=== PATIENT | female | born 1995 | race Caucasian/White ===

== ENCOUNTER 2016-09-14 21:33 | Emergency (ER) | payer BC ==
[~2016-09-14] VITALS: Ht 160 cm; Wt 76.5 kg
[~2016-09-14 21:33] MED LIST changes: -*MEPERIDINE 25 MG INJ VIAL PERIprocedural Use ONLY ONE; -ACETAMINOPHEN/HYDROcodone 325 MG/5 MG TAB ONE; -AMPICILLIN/SULBAC 3 GM/NS 100 ML IV SCH; -BACITRACIN TOP OINT 15 GM TUBE ONE; -CHLORHEXIDINE GLUCONATE 2 % 1 PACK (2 CLOTHS) TOPICAL PRN; -INSULIN HUMAN REGULAR 1,000 UNITS/10 ML VIAL SQ PRN; -LACTATED RINGER'S 1000 ML IV PRN; -LIDOCAINE 1%/EPINEPHrine 1:100,000 SOLN 30 ML VIAL ONE; -METOPROLOL TARTRATE 25 MG TAB PO PRN; -MIDAZOLAM HCL 2 MG/2 ML VIAL ONE; -MORPHINE SULFATE 4 MG/ML INJ ONE; -ONDANSETRON HCL 4 MG/2 ML VIAL IV PUSH ONE; -OXYMETAZOLINE HCL 0.05% 15 ML NASAL SPRAY ONE; -POVIDONE IODINE 5% (ANTISEPSIS KIT) 4 APPLICATIONS EACH NARE PRN; -PROPOFOL 200 MG/20 ML AMP IV ONE; -SODIUM CHLORID 0.9% 500 ML IV PRN
[2016-09-14 21:36] VITALS: BP 125/70; PULSE 88; RESP 18; TEMP 98.3; O2SAT 100
--- NOTE | 2016-09-14 21:52 | PD ---
HPI Chief Complaint: nosebleed Time Seen by Provider: 21:44 Travel History International Travel<30 days: No Contact w/Intl Traveler<30days: No Traveled to known affect area: No History of Present Illness HPI Patient complains of bleeding from the left-sided nose. Patient had nose surgery by Dr. Panchal this morning. Patient has history of deviated nasal septum, hypertrophy of nasal turbinates. Patient status post septoplasty, bilateral turbinectomy, turbinate resection. Patient contacted Dr. Panchal earlier today and states that she had persistent nosebleed. Patient was advised by Dr. Panchal to be seen in the ED. Dr. Panchal met patient in ED and examined the patient. PFSH Past Medical History Cancer: No Cardiovascular Problems: No Diabetes: No Endocrine: No Genitourinary: No Hepatitis: No Hiatal Hernia: No Immune Disorder: No Musculoskeletal: No Neurologic: No Psychiatric: Yes (ANXIETY) Reproductive: No Respiratory: No Thyroid Disease: No Past Surgical History Abdominal Surgery: No AICD: No Cardiac Surgery: No Ear Surgery: No Endocrine Surgery: No Eye Surgery: No Genitourinary Surgery: No Gynecologic Surgery: No Joint Replacement: No Oral Surgery: Yes (WISDOM TEETH EXTRACTION, TONSILLECTOMY/ADENOIDECTOMY) Pacemaker: No Thoracic Surgery: No Social History Tobacco Use: No Allergies-Medications (Allergen,Severity, Reaction): Coded Allergies: Sulfa (Verified Allergy, Severe, Hives, 09/14/16) Reported Meds & Prescriptions Reported Meds & Active Scripts Active Reported Hydrocodone-Acetaminophen 5-325 mg Tab 1 Tab PO Q4H PRN .07/20 (Norethindrone-Ethinyl Estradiol) 1.5-30 Mg-Mcg Tab 1 Tab PO DAILY Hydroxyzine HCl 25 Mg Tab 25 Mg PO DAILY Review of Systems General / Constitutional: No: Fever Eyes: No: Visual changes HENT: Positive: Nosebleed, No: Headaches Cardiovascular: No: Chest Pain or Discomfort Respiratory: No: Shortness of Breath Gastrointestinal: No: Abdominal Pain Genitourinary: No: Dysuria Musculoskeletal: No: Pain Skin: No Rash Neurologic: No: Weakness Psychiatric: No: Depression Endocrine: No: Polydipsia Hematologic/Lymphatic: No: Easy Bruising Physical Exam Narrative Examination done by Dr. Panchal. Rhino Rocket tacking in place left-sided nose. Data Data Last Documented VS Vital Signs Date Time Temp Pulse Resp B/P Pulse Ox O2 Delivery O2 Flow Rate FiO2 09/14/16 21:53 18 09/14/16 21:36 98.3 88 125/70 100 MDM Medical Decision Making Medical Screen Exam Complete: Yes Emergency Medical Condition: Yes Differential Diagnosis Differential diagnosis including bleeding status post nose surgery. Narrative Course 21-year-old female with nosebleed status post nose surgery this morning. Patient was seen by Dr. Panchal in the ED. Examination was done by Dr. Panchal. Patient was advised to follow with him the office tomorrow morning. Diagnosis Primary Impression: Epistaxis Additional Impression: Status post nasal septoplasty Patient Instructions: General Instructions Additional Instructions: Follow-up with Dr. Panchal in a.m. Med/Other Pt SpecificInfo: No Change to Meds Disposition: 01 DISCHARGE HOME Condition: Stable Chris Hightower MD Sep 14, 2016 21:52
== END 2016-09-14 22:07 | disposition home or self-care (01) ==
LOC: PHED 21:33
DX: R04.0 Epistaxis (principal); Z98.890 Other specified postprocedural states; Z86.59 Personal history of other mental and behavioral disorders
CPT/HCPCS: 99281

== ENCOUNTER 2016-09-14 23:06 | Emergency (ER) | payer BC ==
[~2016-09-14] VITALS: Ht 160 cm; Wt 76.8 kg
[2016-09-14 23:14] VITALS: BP 147/82; PULSE 86; RESP 16; TEMP 99; O2SAT 100
[2016-09-14] MEDS ORDERED: ONDANSETRON ODT 4 MG TAB PO ONE (23:45)
[2016-09-14] MEDS ORDERED: MORPHINE SULFATE 4 MG/ML INJ IM ONE (23:45)
--- NOTE | 2016-09-14 23:45 | PD ---
HPI Chief Complaint: ENT Complaint Time Seen by Provider: 23:31 Travel History International Travel<30 days: No Contact w/Intl Traveler<30days: No Traveled to known affect area: No History of Present Illness HPI 21-year-old female complains of facial pressure facial pain and bleeding from the nose and the eyes. Patient status post septoplasty this morning. Patient has packing in place. Patient was seen in emergency room earlier by Dr. Panchal for recheck. Patient was discharged home and came back this evening began with increasing facial pain and facial pressure and she has some bleeding on the eyes and the nose. Patient has been taking hydrocodone for pain. PFSH Past Medical History Anxiety: Yes Depression: Yes Cancer: No Cardiovascular Problems: No Diabetes: No Diminished Hearing: No Endocrine: No Genitourinary: No Hepatitis: No Hiatal Hernia: No Immune Disorder: No Musculoskeletal: No Neurologic: No Psychiatric: Yes (ANXIETY) Reproductive: No Respiratory: No Immunizations Current: Yes Thyroid Disease: No : 0 Past Surgical History Abdominal Surgery: No AICD: No Cardiac Surgery: No Ear Surgery: No Endocrine Surgery: No Eye Surgery: No Genitourinary Surgery: No Gynecologic Surgery: No Joint Replacement: No Oral Surgery: Yes (WISDOM TEETH EXTRACTION, TONSILLECTOMY/ADENOIDECTOMY) Pacemaker: No Thoracic Surgery: No Tympanostomy Tube: Yes Other Surgery: Yes (SEPTOPLASTY) Social History Alcohol Use: Yes (OCC) Tobacco Use: No (QUIT JUNE 2016) Substance Use: No Allergies-Medications (Allergen,Severity, Reaction): Coded Allergies: Sulfa (Verified Allergy, Severe, Hives, 09/14/16) Reported Meds & Prescriptions Reported Meds & Active Scripts Active Reported Hydrocodone-Acetaminophen 5-325 mg Tab 1 Tab PO Q4H PRN (Norethindrone-Ethinyl Estradiol) 1.5-30 Mg-Mcg Tab 1 Tab PO DAILY Hydroxyzine HCl 25 Mg Tab 25 Mg PO DAILY Review of Systems General / Constitutional: No: Fever Eyes: No: Visual changes HENT: No: Headaches Cardiovascular: No: Chest Pain or Discomfort Respiratory: No: Shortness of Breath Gastrointestinal: No: Abdominal Pain Genitourinary: No: Dysuria Musculoskeletal: No: Pain Skin: No Rash Neurologic: No: Weakness Psychiatric: No: Depression Endocrine: No: Polydipsia Hematologic/Lymphatic: No: Easy Bruising Physical Exam Narrative GENERAL: Well-nourished, well-developed patient. SKIN: Focused skin assessment warm/dry. HEAD: Normocephalic. EYES: No scleral icterus. No injection or drainage. NECK: Supple, trachea midline. No JVD or lymphadenopathy. CARDIOVASCULAR: Regular rate and rhythm without murmurs, gallops, or rubs. RESPIRATORY: Breath sounds equal bilaterally. No accessory muscle use. GASTROINTESTINAL: Abdomen soft, non-tender, nondistended. MUSCULOSKELETAL: No cyanosis, or edema. BACK: Nontender without obvious deformity. No CVA tenderness. Patient has a small amount of reddish fluid on the dressing to the nose. No blood coming to the eyes. Data Data Last Documented VS Vital Signs Date Time Temp Pulse Resp B/P Pulse Ox O2 Delivery O2 Flow Rate FiO2 09/14/16 23:14 99.0 86 16 147/82 100 Orders Morphine Inj (Morphine Inj) (09/14/16 23:45) Ondansetron Odt (Zofran Odt) (09/14/16 23:45) MDM Medical Decision Making Medical Screen Exam Complete: Yes Emergency Medical Condition: Yes Differential Diagnosis Differential diagnosis including pain and bleeding post surgery Narrative Course 31-year-old female with facial pain and small mild of redness drainage from the nose and the eyes. Status post septoplasty this morning. I spoke with Dr. Panchal. Advised to follow-up in the office in the morning. Morphine 2 mg IM. Zofran 4 mg ODT given. Diagnosis Primary Impression: Status post nasal septoplasty Patient Instructions: General Instructions Additional Instructions: Continue with medications as directed. Follow-up with Dr. Panchal in a.m. Med/Other Pt SpecificInfo: No Change to Meds Disposition: 01 DISCHARGE HOME Condition: Stable Chris Hightower MD Sep 14, 2016 23:45
[2016-09-14 23:56] VITALS: BP 120/71; PULSE 84; RESP 18; O2SAT 99
[2016-09-15 00:30] VITALS: RESP 18
[2016-09-15 00:35] VITALS: BP 137/84
== END 2016-09-15 00:34 | disposition home or self-care (01) ==
LOC: PHEFT 23:06
DX: Z98.890 Other specified postprocedural states (principal); G89.18 Other acute postprocedural pain; R51 Headache; Z86.59 Personal history of other mental and behavioral disorders; Z87.891 Personal history of nicotine dependence
CPT/HCPCS: 96372; 99281; 99284; J2270

== ENCOUNTER → 2016-09-14 | Day surgery (SDC) | payer BC ==
[~2016-09-14] VITALS: Ht 160 cm; Wt 73.5 kg
[~2016-09-14] MED LIST: *MEPERIDINE 25 MG INJ VIAL PERIprocedural Use ONLY ONE; ACETAMINOPHEN/HYDROcodone 325 MG/5 MG TAB ONE; AMPICILLIN/SULBAC 3 GM/NS 100 ML IV SCH; BACITRACIN TOP OINT 15 GM TUBE ONE; CHLORHEXIDINE GLUCONATE 2 % 1 PACK (2 CLOTHS) TOPICAL PRN; HYDR-3133 PO; HYDR-3516 PO; INSULIN HUMAN REGULAR 1,000 UNITS/10 ML VIAL SQ PRN; JUNETAB2 PO; LACTATED RINGER'S 1000 ML IV PRN; LIDOCAINE 1%/EPINEPHrine 1:100,000 SOLN 30 ML VIAL ONE; METOPROLOL TARTRATE 25 MG TAB PO PRN; MIDAZOLAM HCL 2 MG/2 ML VIAL ONE; MORPHINE SULFATE 4 MG/ML INJ ONE; ONDANSETRON HCL 4 MG/2 ML VIAL IV PUSH ONE; OXYMETAZOLINE HCL 0.05% 15 ML NASAL SPRAY ONE; POVIDONE IODINE 5% (ANTISEPSIS KIT) 4 APPLICATIONS EACH NARE PRN; PROPOFOL 200 MG/20 ML AMP IV ONE; SODIUM CHLORID 0.9% 500 ML IV PRN
[2016-09-14 09:32] VITALS: BP 121/72; PULSE 87; RESP 16; TEMP 98.1; O2SAT 100
[2016-09-14 12:14] VITALS: PULSE 110
[2016-09-14 13:00] VITALS: TEMP 98.5
[2016-09-14 13:05] VITALS: PULSE 104
[2016-09-14 13:45] VITALS: BP 120/73; PULSE 81; RESP 16; O2SAT 99
--- NOTE | 2016-09-28 14:31 | MP ---
cc: TIFFANIE PANCHAL M.D. DATE OF SURGERY: 09/14/2016 SURGEON: Tiffanie Panchal MD. PREOPERATIVE DIAGNOSIS: 1. Nasal airway obstruction. 2. Nasal septal deviation. 3. Hypertrophy of the inferior turbinates. POSTOPERATIVE DIAGNOSIS: 1. Nasal airway obstruction. 2. Nasal septal deviation. 3. Hypertrophy of the inferior turbinates. OPERATION PREFORMED: 1. Open repair of nasal septal fracture. 2. Bilateral submucosal resection of the inferior turbinates. INDICATIONS FOR PROCEDURE: Documented in the history and physical. DESCRIPTION OF OPERATION: The patient was taken to OR #2 and placed in the supine position following induction of general anesthesia and intubation the nose was packed bilaterally with cotton pledgets saturated in 0.05% Oxymetazoline. The septal mucosa and inferior turbinates were injected with a total of 6 ml of 1% Xylocaine with epinephrine 1:100,000. She was then prepped and draped for surgery nasal packing was removed and a diana transfixion incision was made in the left nasal vestibule. Through this incision the septal mucosa was elevated bilaterally as far as the junction of the bony cartilaginous septum. This exposed very thick twisted and irregular quadrangular cartilage. A cumulative area of 2 x 2 cm was removed preserving 1.5 cm dorsal and caudal cartilaginous struts. The mucosa was elevated from the bony septum and the maxillary crest. These were removed using the [place] forceps and the [place] septal forceps and on the bony septum and a 6-mm [place] chisel on the maxillary crest. The incision was then closed using a running suture of 4-0 chromic and the mucosal layers of septum were approximated to each other with a quilting stitch of 4-0 plain gut. The inferior turbinates then were then were addressed using the [employer] power turbinate debrider technique. Stab incisions were made on the anterior end of each inferior turbinate and through this incision the eighth pocket was developed within the soft tissue medial to the conchal bone using a [place] elevator. Using a 2.9-mm powered turbinate debrider blade. This was advanced into the pocket and then activated as it was withdrawn debrided soft tissue from the medial surface of the conchal bone was then returned into the pocket and withdrawn a second time this time with the bipolar cautery activated. Additional bipolar cautery was applied and stab incision site on the anterior and both turbinates were operated in this fashion and the remnants of the inferior turbinates then we lateralized to the lateral nasal wall. The nose was then packed with 5.5 mm rapid rhino packs, each inflated with 5 mL of air and the procedure was terminated. The patient was reversed from anesthesia and taken to recovery in good condition. There were no complications. Blood loss was 40 mls. MD EVANGELINA Lund/alejandro /1:10 PM /2:16 PM
== END | disposition home or self-care (01) ==
LOC: PHSDC 08:22
PROVIDERS: ATTEND Otolaryngology
DX: J34.89 Other specified disorders of nose and nasal sinuses (principal); J34.2 Deviated nasal septum; J34.3 Hypertrophy of nasal turbinates; R09.81 Nasal congestion
CPT/HCPCS: 00160; 30140; 30520; J0295; J2175; J2250; J2270; J2405; J3010; J7120